=== PATIENT | male | born 1950 | race Caucasian/White ===

== ENCOUNTER 2017-09-07 11:49 | Inpatient (IN) | payer MEDICARE, MEDICAID ==
--- NOTE | 2017-09-07 12:12 | ED Physician Chart ---
ED Chief Complaint/HPI - Patient Information Date Seen:: 09/07/17 Time Seen:: 11:45 Chief Complaint:: Dyspnea History of Present Illness:: onset x 3 hours of dyspnea, ALOC, and AMS; no report of trauma, H/As neck pain, C/P, cough, Abd/Flank pain, A/N/V/D/C, fever, chills, or urinary s/s Allergies:: Allergies Allergy/AdvReac Type Severity Reaction Status Date / Time MDX No Known Allergies - Nka Allergy Verified 12/05/15 00:17 [No Known Allergies - Nka] Historian:: Patient, EMS Review:: Nurse's Note Reviewed, Old Chart Reviewed, EMS run form Reviewed, Transfer documents Reviewed ED Review of Systems - Review of Systems General/Constitutional: Fever, No chills, No weight loss, Weakness, No diaphoresis, No edema, No loss of appetite Skin: No skin lesions, No rash, No bruising Head: No headache, No light-headedness Eyes: No loss of vision, No pain, No diplopia ENT: No earache, No nasal drainage, No sore throat, No tinnitus Neck: No neck pain, No swelling, No thyromegaly, No stiffness, No mass noted Cardio Vascular: Chest pain, Palpitations, No PND, No orthopnea, No edema Pulmonary: SOB, Cough, No sputum, No wheezing GI: No nausea, No vomiting, No diarrhea, No pain, No melena, No hematochezia, No constipation, No hematemesis G/U: No dysuria, No frequency, No hematuria Musculoskeletal: No bone or joint pain, No back pain, No muscle pain Endocrine: Polyuria, Polydipsia Psychiatric: No prior psych history, No depression, No anxiety, No suicidal ideation, No homicidal ideation, No auditory hallucination, No visual hallucination Hematopoietic: No bruising, No lymphadenopathy Allergic/Immuno: No urticaria, No angioedema Neurological: No syncope, No focal symptoms, No weakness, No paresthesia, No headache, No seizure, No dizziness, Confusion, No vertigo ED Past Medical History - Past Medical History Obtainable: Yes Past Medical History: HTN, DM, CAD, Dyslipidemia, PUD/GERD, ESRD Family History: Heart disease, Diabetes Melitus, HTN Social History: Non Smoker, No Alcohol, No Drug Use, Single, Care Facility Surgical History: None Psychiatricy History: None Medication: Reviewed Family Medical History - Family Member Mother History Unknown: Yes ED Physical Exam - Physical Examination General/Constitutional: Well-developed, well-nourished Other Gen/Cons comments:: pt in acute respiratory distress Head: Atraumatic Eyes: Lids, conjuctiva normal, PERRL, EOMI Skin: Nl inspection, No rash, No skin lesions, No ecchymosis, Well hydrated, No lymphadenopathy ENMT: External ears, nose nl, Nasal exam nl, Lips, teeth, gums nl Neck: Nontender, Full ROM w/o pain, No JVD, No nuchal rigidity, No bruit, No mass, No stridor Respiratory: Nl effort/Exclusion Other Respiratory comments:: + Rales and Rhonchi Cardio Vascular: No murmur, gallop, rubs, NL S1 S2 Other Cardio Vascular comments:: Irregulat Irregular Rhythm GI: No tenderness/rebounding/guarding, No organomegaly, No hernia, Normal BS's, Nondistended, No mass/bruits, No McBurney tenderness : No CVA tenderness Extremities: No tenderness or effusion, Full ROM, normal strength in all extremities, No edema, Normal digits & nails Neuro/Psych: Alert/oriented, DTR's symmetric, Normal sensory exam, Normal motor strength, Judgement/insight normal, Mood normal, Normal gait, No focal deficits Misc: Normal back, No paraspinal tenderness ED Labs/Radiology/EKG Results - Lab Results Comments:: + Anemia; Low H/H; WBC: 19.5; D-Dimer: 1350 - Radiology Results Results: + infiltrates; + Pleural Effusion; Good ET Tube Placement ED Assessment - Procedures Procedures:: Oral Endotracheal Intubation performed; no complications; Good Breath Sounds Equal Bilaterally Informed Consent: Procedure/risk/benefits explained by MD: Yes ED Septic Shock - . Is Septic Shock (SBP<90, OR Lactate>4 mmol\L) present?: No ED Reassessment (Disposition) - Reassessment Reassessment Condition:: Improved - Diagnosis Diagnosis:: Dyspnea; Respiratory Distress; Respiratory Failure; Atrial Fibrillation; AMS; ALOC; Metabolic Acidosis; Pneumonia - Aftercare/Follow up Instructions Aftercare/Follow-Up Instructions:: Counseled pt regarding lab results/diagnosis & need follow up, Counseled pt & family regarding lab results/diagnosis & need follow up - Patient Disposition Discharge/Transfer:: Acute Care w/in this hosp Accepting Physician:: Dr. Almanzar Time Called:: 1414 Time Responded:: 14:15 Admitted to:: ICU Spoke to:: Dr. Almanzar Admitting Medical Physician:: Dr. Almanzar Condition at Disposition:: Critical, Improved
[2017-09-07 12:48] LABS: MEAN CELL VOLUME 93.4 fl (80-99); MEAN CORPUSCULAR HEMOGLOBIN 29.8 pg (27.0-31.0); MEAN CORPUSCULAR HGB CONC 31.9 pg (28.0-36.0); MEAN PLATELET VOLUME 8.9 fl; NEUTROPHILE ABSOLUTE 18.3 Th/cmm (1.8-8.0); PLATELET COUNT 265 Th/cmm (150-400); RED BLOOD COUNT 2.85 Mil/cmm (3.80-5.80); RED CELL DISTRIBUTION WIDTH 14.2 % (11.5-20.0)
[2017-09-07 12:53] LABS: HEMATOCRIT 26.7 % (41.0-60); HEMOGLOBIN 8.5 gm/dL (12-16); WHITE BLOOD COUNT 19.5 Th/cmm (4.8-10.8)
[2017-09-07 13:02] LABS: INR 1.39 (0.5-1.4); PROTHROMBIN TIME (TEST) 14.7 SECONDS (9.5-11.5)
[2017-09-07 13:06] LABS: ALB/GLOB RATIO 0.7 (1.0-1.8); ANION GAP 16.6 (7.0-16.0); BILIRUBIN,TOTAL 0.3 mg/dL (0.3-1.0); BUN/CREATININE RATIO 31.1; CALCIUM SERUM 8.2 mg/dL (8.6-10.3); CARBON DIOXIDE 17.1 mEq/L (21.0-31.0); CREATININE - SERUM 3.8 mg/dL (0.7-1.3); POTASSIUM SERUM 4.7 mEq/L (3.5-5.1)
[2017-09-07 13:20] LABS: TOTAL CELLS COUNTED 100
[2017-09-07 13:21] LABS: BAND NEUTROPHILE 6 % (0-10); EOSINOPHIL 1 % (0-5); NEUTROPHILS 89 % (40-80)
[2017-09-07 13:25] LABS: INR 1.39 (0.5-1.4); PROTHROMBIN TIME (TEST) 14.7 SECONDS (9.5-11.5)
[2017-09-07] MEDS ORDERED: Midazolam 1mg/ml 2 ml vial IV STA (13:36)
[2017-09-07] MEDS ORDERED: Sodium Chloride 0.9% 250 ML IV ONE (13:39)
--- NOTE | 2017-09-07 13:48 | Diagnostic Imaging Report ---
CT scan of the brain without intravenous contrast HISTORY: Stroke, CVA Total DLP equals 649 CTDI equals 40.2 Axial sections were obtained from the base of the skull to the vertex. Exam is somewhat compromised due to patient motion. There is enlargement of the ventricular system along with enlargement of cerebral sulci and subarachnoid cisterns reflecting atrophy. Hypodensity is seen within the supratentorial white matter regions without mass effect. The findings may be associated with chronic small vessel ischemic disease. No acute intracerebral hemorrhage. Again, no mass effect or shift of midline structures. No extra-axial masses or abnormal fluid collections. There is evidence of fluid within the right and to lesser degree left mastoid air cells. Findings consistent with inflammatory change. Small fluid levels also noted within the sphenoid sinuses along with mucosal thickening within the ethmoid sinuses. IMPRESSION: 1. No acute intracerebral abnormalities 2. Cerebral atrophy 3. Supratentorial white matter changes. The findings may be associated with chronic small vessel ischemic disease. 4. Evidence of fluid within the right and to a lesser degree left mastoid air cells consistent with inflammatory change. Small fluid levels also noted within the sphenoid sinuses along with mucosal thickening within the ethmoid sinuses consistent with sinusitis.
--- NOTE | 2017-09-07 13:50 | Diagnostic Imaging Report ---
Portable chest x-ray HISTORY: Pain Heart size difficult to assess with portable technique. There is evidence of a large left pleural effusion. The findings result in obscuration of the left lateral margins of the mediastinum and left lower heart margin. Bilateral pulmonary infiltrates are noted. An endotracheal tube tip is approximately 1.0 cm above the saurabh. A right-sided vascular catheter is seen with the tip near the junction of the superior vena cava and right atrium. A vascular catheter tip is also noted within the right axillary region. Severe arthritic changes noted about the right shoulder region. IMPRESSION: 1. Moderate to large left pleural effusion 2. Bilateral pulmonary infiltrates. Findings may be associated with edema. Pneumonia cannot be excluded. 3. Line and tube placements as noted above The above findings should be correlated with the patient's medical history.
[2017-09-07] MEDS ORDERED: DOPamine 400 MG/250 ML BAG IV ONE (14:00)
[2017-09-07 14:03] LABS: BE(B) -10.6 mEq/L (-3.0-3.0); HCO3 16.7 mEq/L (20.0-26.0); pH 7.25 (7.35-7.45)
[2017-09-07 14:04] LABS: ABG SOURCE Arterial; CRITICAL VALUES REPORTED BY DM; FIO2 100; MECH RATE 16; MECH VT 550
[2017-09-07] MEDS ORDERED: Levofloxacin 500mg/100mL 500 MG/100 ML BAG IV ONE ×2 (14:08→14:30)
[2017-09-07] MEDS ORDERED: DOPamine 400 MG/250 ML BAG IV PRN (14:09)
[2017-09-07] MEDS ORDERED: Sodium Bicarbonate 8.4% 50mEq PFS IVP STA (14:23)
[2017-09-07] MEDS ORDERED: Sodium Bicarbonate 8.4% 50mEq PFS IVP ONE ×3 (14:30→16:40)
[2017-09-07] MEDS ORDERED: Norepinephrine 4 mg/4mL Vial IV ONE (15:16)
[2017-09-07 15:23] LABS: URINE BILIRUBIN NEGATIVE (NEGATIVE); URINE BLOOD LARGE (NEGATIVE); URINE GLUCOSE (UA) NEGATIVE (NEGATIVE); URINE KETONE NEGATIVE (NEGATIVE); URINE PROTEIN 100 mg/dL (NEGATIVE); URINE UROBILINOGEN 0.2 E.U./dL (0.2 - 1.0)
[2017-09-07 15:54] LABS: URINE COLOR STRAW
[2017-09-07 15:59] LABS: URINE WBC >100 /hpf (0-5)
[2017-09-07 16:00] LABS: URINE BACTERIA FEW /hpf (NONE SEEN); URINE EPITHELIAL CELLS NONE SEEN /lpf (FEW)
[2017-09-07] MEDS ORDERED: Dextrose 50% 50 mL Abboject IVP ONE (16:40)
[2017-09-08 07:42] VITALS: BP 78/42
== END 2017-09-07 16:57 | disposition expired | DRG 208 ==
LOC: ER 11:49 → ICU 14:25
PROVIDERS: ADMIT Family Medicine; ATTEND Family Medicine
PROC: 5A1935Z Respiratory Ventilation, Less than 24 Consecutive Hours (ICD-10-PCS; principal; 2017-09-07)
PROC: 0BH17EZ Insertion of Endotracheal Airway into Trachea, Via Natural or Artificial Opening (ICD-10-PCS; 2017-09-07)
DX: J18.9 Pneumonia, unspecified organism (principal); J96.90 Respiratory failure, unspecified, unspecified whether with hypoxia or hypercapnia; E87.2 Acidosis; N18.6 End stage renal disease; I12.0 Hypertensive chronic kidney disease with stage 5 chronic kidney disease or end stage renal disease; E11.22 Type 2 diabetes mellitus with diabetic chronic kidney disease; I25.10 Atherosclerotic heart disease of native coronary artery without angina pectoris; E78.5 Hyperlipidemia, unspecified; K21.9 Gastro-esophageal reflux disease without esophagitis; I48.91 Unspecified atrial fibrillation; Z83.3 Family history of diabetes mellitus; Z82.49 Family history of ischemic heart disease and other diseases of the circulatory system
CPT/HCPCS: 36415-UA; 36600-90; 70450-TC; 71010-TC; 80053-TC; 80061-TC; 81001-TC; 82550-TC; 82803-TC; 82948-90; 83605; 83880-TC; 84484-TC; 85007-TC; 85027-TC; 85379-TC; 85610-TC; 85730-TC; 87070; 87086-90; 93005; 94002; J0171; J0330; J1265; J1956; J2250; J7030; J7070; J7799; X6452; Z7610